=== PATIENT | male | born 1970 | race Caucasian/White ===

== ENCOUNTER 2022-06-06 10:28 | Observation (INO) ==
--- NOTE | 2022-06-06 11:21 | XRay Report ---
LUMBAR SPINE 3 VIEWS CLINICAL HISTORY: Low back pain. FINDINGS: 3 views of the lumbar spine are obtain. No prior studies are available for comparison at t he time of dictation. The skeletal structures are well mineralized. There is no radiographic evidence of fracture or malalignment. Vertebral body height and alignment are maintained. Small anterior and lateral marginal osteophytes are seen throughout. The transverse and spinous processes are intact. Th ere is mild multilevel degenerative disc space narrowing, greatest at L4-L5. Mild facet arthropathy i s seen in the lower lumbar region. The visualized bony pelvis appears intact. There is a nonobstructe d abdominal bowel gas pattern. Cholecystectomy clips are seen in the right upper quadrant. IMPRESSION: No acute bony abnormality is seen involving the lumbar spine. ACT 112: Negative or not required by law. Electronically signed by: Reno Gerardo M.D. 06/06/2022 11:19 AM
[2022-06-06] MEDS ORDERED: ONDANSETRON INJ 2 MG/ML 2 ML VIAL IV STA (11:45)
[2022-06-06] MEDS ORDERED: MoRPHine SULFATE 4 MG/ML 1 ML CARP\\VIAL IV STA (11:45)
--- NOTE | 2022-06-06 12:17 | Emergency Department Note ---
History of Present Illness General Chief complaint: Back Injury/Pain Stated complaint: BACK INJURY Time Seen by Provider: 06/06/22 11:28 History of Present Illness Maximum Pain Intensity: 8 This is a 51-year-old male that presents to the emergency department via private vehicle with complaints of "back injury/pain". The patient notes that over the past week he has been experiencing low back pain and that acutely worsened today when he bent down to tie his shoes. Initially he noted that it was centrally located in his low back but now seems to be favoring the left side. It does not radiate into his legs. Patient denies any trauma, injury, fevers, chills, chest pain, shortness of breath, abdominal pain, lower extremity weakness, bowel or bladder incontinence, numbness or tingling in genital region, speech trouble, weakness. Patient denies any history of spinal surgery. Patient does note a history of gastric bypass. Home Medications Medication Instructions Recorded Confirmed Type aspirin 81 mg tablet,delayed 81 mg PO DAILY 06/06/22 06/06/22 History release metoprolol succinate 25 mg 25 mg PO QAM 06/06/22 06/06/22 History tablet,extended release 24 hr multivitamin with minerals 1 tab PO QAM 06/06/22 06/06/22 History naproxen sodium 220 mg tablet 440 mg PO DIRECTED PRN Pain 06/06/22 06/06/22 History (Aleve) rosuvastatin 10 mg tablet 10 mg PO QAM 06/06/22 06/06/22 History turmeric 400 mg capsule 400 mg PO QAM 06/06/22 06/06/22 History Allergies Allergy/AdvReac Type Severity Reaction Status Date / Time No Known Allergies AdvReac Unknown Verified 06/06/22 16:15 Past Med/Surg History Medical History CAD (coronary artery disease) Eczema Essential hypertension History of DVT of lower extremity History of [place] (myocardial infarction) Obstructive sleep apnea Osteoarthritis of knees, bilateral Traumatic urethral stricture Surgical History History of cholecystectomy History of gastric bypass History of tonsillectomy Family History Father Heart disease Diabetes COPD (chronic obstructive pulmonary disease) Mother Asthma Cancer Social History Smoking Status: Current some day smoker Hx Alcohol Use: Yes Alcohol type: beer Alcohol Intake Frequency: 2-3 x/Week Current Living Situation: Other current occupational status: employed Feels Safe at Home: Yes Review of Systems A total of 10 systems reviewed and were otherwise negative Physical Exam Vital Signs Vital Signs - 24 hr 06/06/22 10:36 06/06/22 11:45 06/06/22 13:00 Temperature 36.4 C L Temperature Source Oral Pulse Rate 92 H Pulse Rate [Finger] 74 70 Pulse Rhythm [Finger] Regular Regular Pulse Strength [Finger] Normal Normal Respiratory Rate 18 24 20 Respiratory Effort / Characteristics Non-Labored Non-Labored Respiratory Depth Normal Normal Respiratory Pattern Regular Regular Blood Pressure 203/117 H Blood Pressure [Left Arm] 144/79 H 148/84 H Blood Pressure Mean 145 Blood Pressure Mean [Left Arm] 100 105 Blood Pressure Position [Left Arm] Pulse Oximetry 98 96 97 Oxygen Delivery Method Room Air Room Air Room Air Sepsis Recent Fever Within 48 Hours No Sepsis New/Unexplained Change in Mental Status No Sepsis Action Taken by Nursing No Action Required 06/06/22 15:46 06/06/22 18:00 Temperature Temperature Source Pulse Rate Pulse Rate [Finger] 63 86 Pulse Rhythm [Finger] Pulse Strength [Finger] Respiratory Rate 18 19 Respiratory Effort / Characteristics Respiratory Depth Respiratory Pattern Blood Pressure Blood Pressure [Left Arm] 130/83 134/80 Blood Pressure Mean Blood Pressure Mean [Left Arm] 98 98 Blood Pressure Position [Left Arm] Lying Pulse Oximetry 96 97 Oxygen Delivery Method Room Air Room Air Sepsis Recent Fever Within 48 Hours Sepsis New/Unexplained Change in Mental Status Sepsis Action Taken by Nursing VITAL SIGNS - Vital signs and nursing notes were reviewed. Stable and afebrile. GENERAL -51-year-old male appearing his stated age who is in no acute distress. Communicates well with provider and answers questions appropriately. SKIN - Without rashes. No herpetic lesions. No skin abnormalities overlying the back. HEAD - NC/AT. EYES - Sclera anicteric. EARS - No deformities of external structures noted on gross examination bilaterally. NOSE - Midline and without cyanosis. No epistaxis or purulent drainage noted. MOUTH/OROPHARYNX - Without perioral cyanosis. NECK - No nuchal rigidity. LUNGS - Chest wall symmetric without accessory muscle use, intercostals retractions, or central cyanosis. Normal vesicular breath sounds CTA B/L. No wheezes, rales, or rhonchi appreciated. CARDIAC - RRR with S1/S2. No murmur, rubs, or gallops appreciated. EXTREMITIES - No clubbing or peripheral cyanosis. +5/5 strength noted in UE/LE bilaterally. NEUROLOGIC - Cranial nerves II through XII grossly intact. MUSCULOSKELETAL: No TTP overlying the spine. PSYCH - A&O and cooperates fully with examiner. Pt is very pleasant and interacts well with examiner. Course Administered Medications Acetaminophen (Acetaminophen 500 Mg Tab) 1,000 mg PO Q8H KARO Stop: 07/06/22 16:59 Last Admin: 06/06/22 18:15 Dose: 1,000 mg Documented By: THOMAS Lidocaine (Lidocaine 5% 1 Patch) 1 patch TD QAM KARO Stop: 07/06/22 16:59 Last Admin: 06/06/22 18:18 Dose: 1 patch Documented By: THOMAS Methylprednisolone (Methylprednisolone 4 Mg Tab) 8 mg PO 1730,2100 KARO Stop: 06/06/22 21:01 Last Admin: 06/06/22 18:16 Dose: 8 mg Documented By: THOMAS Pantoprazole Sodium (Pantoprazole 40 Mg Tab) 40 mg PO QAM [facility] Stop: 07/06/22 16:59 Last Admin: 06/06/22 18:17 Dose: 40 mg Documented By: THOMAS Discontinued Medications Hydromorphone HCl (Hydromorphone Inj 1 Mg/Ml Syringe) 1 mg IV NOW STA Stop: 06/06/22 13:47 Last Admin: 06/06/22 14:10 Dose: 1 mg Documented By: ANDIE Ketorolac Tromethamine (Ketorolac Tromethamine 15 Mg/Ml Vial) 15 mg IV NOW STA Stop: 06/06/22 14:04 Last Admin: 06/06/22 14:10 Dose: 15 mg Documented By: ANDIE Morphine Sulfate (Morphine Sulfate 4 Mg/Ml 1 Ml Carp\\Vial) 4 mg IV NOW STA Stop: 06/06/22 11:46 Last Admin: 06/06/22 12:12 Dose: 4 mg Documented By: ANDIE Ondansetron HCl (Ondansetron Inj 2 Mg/Ml 2 Ml Vial) 4 mg IV NOW STA Stop: 06/06/22 11:46 Last Admin: 06/06/22 12:12 Dose: 4 mg Documented By: RDD Medical Decision Making Laboratory Data 06/06/22 12:17 06/06/22 12:17 Lab Results 06/06/22 06/06/22 Range/Units 12:17 12:17 WBC 8.30 (4.8-10.8) K/ul RBC 4.53 L (4.63-6.08) M/uL Hgb 13.8 L (14.0-18.0) g/dl Hct 40.8 (40.1-51.0) % MCV 90.1 (80.0-100.0) fL MCH 30.5 (25.0-34.0) pg MCHC 33.8 (32.0-36.0) g/dL RDW Std Deviation 44.6 (36.4-46.3) fL RDW Coeff of Conchita 13.5 (11.5-14.5) % Plt Count 266 (130-400) K/uL MPV 9.1 L (9.4-12.4) fL Immature Gran % (Auto) 0.2 % Neut % (Auto) 70.0 % Lymph % (Auto) 19.4 % Carolina % (Auto) 8.6 % Eos % (Auto) 1.2 % Baso % (Auto) 0.6 % Neut # (Auto) 5.81 (1.4-6.5) K/uL Lymph # (Auto) 1.61 (1.2-3.4) K/uL Carolina # (Auto) 0.71 (0.24-0.82) K/uL Eos # (Auto) 0.10 (0-0.50) K/uL Baso # (Auto) 0.05 (0-0.2) K/uL Immature Gran # (Auto) 0.02 (0.00-0.02) K/uL Sodium 138 (136-145) mmol/L Potassium 4.1 (3.5-5.1) mmol/L Chloride 103 (98-107) mmol/L Carbon Dioxide 29 (21-32) mmol/L Anion Gap 6 (3-11) BUN 19 (6-23) mg/dl Creatinine 0.85 (0.6-1.4) mg/dl Est Cr Clr Drug Dosing Not Reportable Est GFR ( Amer) 116.9 ml/min Est GFR (Non-Af Amer) 100.9 ml/min BUN/Creatinine Ratio 22.4 H (10-20) Glucose 96 (70-99(Fasting)) mg/dl Calcium 9.3 (8.5-10.1) mg/dl Total Bilirubin 0.7 (0.2-1.0) mg/dl AST 18 (13-39) U/L ALT 19 (7-52) U/L Alkaline Phosphatase 92 (34-104) U/L Total Protein 7.7 (6.0-8.3) gm/dl Albumin 4.2 (3.4-5.0) gm/dl Globulin 3.5 (2.5-4.0) gm/dl Albumin/Globulin Ratio 1.2 (0.9-2) Imaging Data Radiologist's Impression: Lumbar Spine X-Ray 06/06/22 10:38 LUMBAR SPINE 3 VIEWS CLINICAL HISTORY: Low back pain. FINDINGS: 3 views of the lumbar spine are obtain. No prior studies are available for comparison at the time of dictation. The skeletal structures are well mineralized. There is no radiographic evidence of fracture or malalignment. Vertebral body height and alignment are maintained. Small anterior and lateral marginal osteophytes are seen throughout. The transverse and spinous processes are intact. There is mild multilevel degenerative disc space narrowing, greatest at L4-L5. Mild facet arthropathy is seen in the lower lumbar region. The visualized bony pelvis appears intact. There is a nonobstructed abdominal bowel gas pattern. Cholecystectomy clips are seen in the right upper quadrant. IMPRESSION: No acute bony abnormality is seen involving the lumbar spine. ACT 112: Negative or not required by law. Electronically signed by: Reno Gerardo M.D. 06/06/2022 11:[address] 06/06/22 11:45 CT SCAN OF THE LUMBAR SPINE WITHOUT IV CONTRAST CLINICAL HISTORY: Low back pain. COMPARISON STUDY: Radiographs of lumbar spine dated 06/06/2022. TECHNIQUE: CT scan of the lumbar spine is performed from the lower thoracic spine to the sacrum. Images are reviewed in the axial, sagittal, and coronal planes. IV contrast was not administered for this examination. A dose lowering technique was utilized adhering to the principles of ALARA. The examination is degraded by large body habitus, and by significant streak artifact from the body wall abutting the CT gantry. CT DOSE: 830.27 mGy.cm FINDINGS: The skeletal structures are well-mineralized. There is no evidence of fracture or malalignment involving the lumbar spine. Vertebral body height and alignment are maintained. There is straightening of lumbar lordosis. Anterior and lateral marginal osteophytes are seen throughout. The transverse and spinous processes appear intact. There is no evidence of spondylolysis. No lytic or blastic lesion is seen. Mild facet arthropathy is noted in the lower lumbar region. There is mild to moderate multilevel degenerative disc space narrowing, greatest at L3-L4 and L4-L5. The central canal is not well evaluated due to streak artifact. The visualized sacrum and bony pelvis appear intact. The paraspinous soft tissues are normal in appearance. Cholecystectomy clips are noted. There is no retroperitoneal lymphadenopathy. IMPRESSION: No acute bony abnormality is seen involving the lumbar spine ACT 112: Negative or not required by law. Dictated: 06/06/2022 12:58 PM Transcribed: 06/06/2022 1:21 PM Mirian [id number] [facility] Electronically signed by: Reno Gerardo M.D. 06/06/2022 2:16 PM [facility] Narrative Patient was seen and evaluated as above in room D03. Review was performed of triage nursing notes and vital signs. After obtaining a thorough history and physical examination the above work up was performed. Patient presents to us today with low back pain. He clinically appears well and nontoxic. No evidence of cauda equina syndrome by history or exam. Options of care were discussed with the patient. IV access was established. Labs were drawn. No leukocytosis. Minor anemia noted with hemoglobin of 13.8. No evidence of kidney or liver failure. Patient's L-spine x-ray was performed p rior to me seeing the patient as ordered from triage and was negative for acute process. A CT scan was obtained of the L-spine to further evaluate his location of discomfort. Results as above. There are mild to moderate multilevel degenerative disc space narrowing noted at L3-L4 and L4-L5. This likely is contributory to his presentation at this time. No indication for emergent MRI. Options of care were discussed in regard to analgesia. I initially medicated the patient here with IV morphine, IV Zofran noting he already tried [id number] type medications at home without relief. This was unhelpful at helping his discomfort. IV Dilaudid then ordered. He noted some improvement. Ambulatory trial initiated and he was unable to stand up straight and still had difficulty walking noting his discomfort. Options in regard to inpatient versus outpatient management discussed. Through shared decision-making with the patient we will proceed with further evaluation and management in the inpatient setting. Patient happy with plan of care. Case discussed with the hospitalist service. Please refer to further documentation regarding his stay. GCS: 15 In the evaluation and treatment of this patient the following differential diagnosis entertained: Fracture, dislocation, subluxation, cauda equina syndrome, AAA, diverticulitis, appendicitis, torsion, osteomyelitis, piriformis syndrome, strain, sprain, among others. Impression & Plan Intractable low back pain Discharge Plan Visit Data Chief Complaint: Back Injury/Pain Stated Complaint: BACK INJURY ED Provider: Martín Melendrez ED Midlevel Provider: Thomas Child Discharge Problem: Intractable low back pain Patient Disposition: Admitted As Inpatient Condition: Good Discharge Instructions Interventions: ED Discharge Assessment Last Done: 06/06/22 18:25 Forms Stand Alone Forms: [facility], Virtual Emergency Department, Important Visit Information Prescriptions Prescriptions: No Action naproxen sodium [Aleve] 220 mg Tablet 440 mg PO DIRECTED PRN (Reason: Pain) metoprolol succinate 25 mg tablet extended release 24 hr 25 mg PO QAM Men's One Daily Tablet 1 tab PO QAM rosuvastatin 10 mg tablet 10 mg PO QAM turmeric 400 mg Capsule 400 mg PO QAM aspirin 81 mg Tablet,Delayed Release (Dr/Ec) 81 mg PO DAILY Referrals Referrals: Yuri Garvin DO [Primary Care Provider] -
[2022-06-06 12:36] LABS: Basophils # (auto) 0.05 K/uL (0-0.2); Basophils % (auto) 0.6 %; Eosinophils % (auto) 1.2 %; Hematocrit (blood only) 40.8 % (40.1-51.0); Hemoglobin 13.8 g/dl (14.0-18.0); Immature Granulocytes # (auto) 0.02 K/uL (0.00-0.02); Immature Granulocytes % (auto) 0.2 %; Lymphocytes # (auto) 1.61 K/uL (1.2-3.4); Lymphocytes % (auto) 19.4 %; Mean Corpuscular Hemoglobin 30.5 pg (25.0-34.0); Mean Corpuscular Hgb Conc 33.8 g/dL (32.0-36.0); Mean Corpuscular Volume 90.1 fL (80.0-100.0); Mean Platelet Volume 9.1 fL (9.4-12.4); Monocytes # (auto) 0.71 K/uL (0.24-0.82); Monocytes % (auto) 8.6 %; Neutrophils # (auto) 5.81 K/uL (1.4-6.5); Platelet Count 266 K/uL (130-400); RDW Coefficient of Variation 13.5 % (11.5-14.5); RDW Standard Deviation 44.6 fL (36.4-46.3); Red Blood Count 4.53 M/uL (4.63-6.08)
[2022-06-06 12:58] LABS: Alanine Aminotransferase 19 U/L (7-52); Albumin Globulin Ratio 1.2 (0.9-2); Albumin Level 4.2 gm/dl (3.4-5.0); Alkaline Phosphatase 92 U/L (34-104); Anion Gap 6 (3-11); Aspartate Aminotransferase 18 U/L (13-39); BUN Creatinine Ratio 22.4 (10-20); Bilirubin,Total 0.7 mg/dl (0.2-1.0); Blood Urea Nitrogen 19 mg/dl (6-23); Calcium 9.3 mg/dl (8.5-10.1); Carbon Dioxide 29 mmol/L (21-32); Chloride 103 mmol/L (98-107); Est GFR (African American) 116.9 ml/min; Est GFR (Non-African American) 100.9 ml/min; Globulin 3.5 gm/dl (2.5-4.0); Glucose 96 mg/dl (70-99(Fasting)); Potassium 4.1 mmol/L (3.5-5.1); Sodium 138 mmol/L (136-145); Total Protein 7.7 gm/dl (6.0-8.3)
[2022-06-06] MEDS ORDERED: HYDROmorphone INJ 1 MG/ML SYRINGE IV STA (13:46)
[2022-06-06] MEDS ORDERED: KETOROLAC TROMETHAMINE 15 MG/ML VIAL IV STA (14:03)
--- NOTE | 2022-06-06 14:18 | CT Scan Report ---
CT SCAN OF THE LUMBAR SPINE WITHOUT IV CONTRAST CLINICAL HISTORY: Low back pain. COMPARISON STUDY: Radiographs of lumbar spine dated 06/06/2022. TECHNIQUE: CT scan of the lumbar spine is performed from the lower thoracic spine to the sacrum. Imag es are reviewed in the axial, sagittal, and coronal planes. IV contrast was not administered for this examination. A dose lowering technique was utilized adhering to the principles of ALARA. The examina tion is degraded by large body habitus, and by significant streak artifact from the body wall abuttin g the CT gantry. CT DOSE: 830.27 mGy.cm FINDINGS: The skeletal structures are well-mineralized. There is no evidence of fracture or malalignm ent involving the lumbar spine. Vertebral body height and alignment are maintained. There is straight ening of lumbar lordosis. Anterior and lateral marginal osteophytes are seen throughout. The transver se and spinous processes appear intact. There is no evidence of spondylolysis. No lytic or blastic le philippe is seen. Mild facet arthropathy is noted in the lower lumbar region. There is mild to moderate m ultilevel degenerative disc space narrowing, greatest at L3-L4 and L4-L5. The central canal is not we ll evaluated due to streak artifact. The visualized sacrum and bony pelvis appear intact. The paraspi nous soft tissues are normal in appearance. Cholecystectomy clips are noted. There is no retroperiton eal lymphadenopathy. IMPRESSION: No acute bony abnormality is seen involving the lumbar spine ACT 112: Negative or not required by law. Dictated: 06/06/2022 12:58 PM Transcribed: 06/06/2022 1:21 PM Mirian [id number] [facility] Electronically signed by: Reno Gerardo M.D. 06/06/2022 2:16 PM
--- NOTE | 2022-06-06 16:50 | History & Physical Report ---
Date of Service June 06, 2022 Assessment & Plan (1) Intractable low back pain: Plan: 51 y/o male presents with one week of acute lower back pain that has gradually worsened and is now limiting his ability to function safely at home. Still with difficulty ambulating in the ED due to pain so referred for admission for pain control - Admit to med surg - Consult pain management to determine if pt may be a candidate for injections - Add scheduled acetaminophen, Baclofen and lidocaine patch - Will trial Medrol dosepack - Add prn IV dilaudid - Fall precautions - Avoid NSAIDs if possible due to hx gastric bypass (2) Morbid obesity: (3) CAD (coronary artery disease): (4) Essential hypertension: (5) History of gastric bypass: Plan Continue other home medications as appropriate Pt seen and reviewed with attending physician, Dr. Hensley. Plan of care discussed and as outlined above Code Status: Full code DVT Prophylaxis: Crisatl White PA-C History of Present Illness Chief Complaint: Worsening back pain x 1 week Primary Care Provider: Yuri Garvin DO This is a 51 y/o male with a PMH of RI, morbid obesity, prior gastric bypass, sleep apnea, and urethral stricture who presented to the ED with worsening lower back pain x 1 week. Pt reports a history of right sciatica but this had seemed to improve after recent injections in knees for arthritis. One week ago he woke up with mid-lumbar pain that seemed to radiate to both sides. This started to improve initially after a few days but other the weekend it has moved to his left lumbar area and is worsening. He describes the pain as sharp and "deep" but it does not radiate to LE. Associated bilateral SI joint pain. He has been taking Aleve 2 tab BID with occasional Tylenol but this only takes the edge off. Pain has not gone away completely. This morning, he bent over to tie his shoe and had acute worsening of the pain. He attempted to go to work (at [employer]) but was unable to stand up straight and could not complete his work so he came to the ED for evaluation. In the ED, he received multiple doses of pain medication including morphine, dilaudid, and toradol without significant relief of pain. ED provider attempted to ambulate pt in the room but pt was unable to tolerate due to pain and was thought to be a significant fall risk if sent home. Pt reports living with a roommate. He has three steps to get into the house but otherwise living space is on one floor. He denies prior spinal surgery. Current pain is different than prior back pain associated with right sciatica. Allergies Allergy/AdvReac Type Severity Reaction Status Date / Time No Known Allergies AdvReac Unknown Verified 06/06/22 16:15 Home Medications Medication Instructions Recorded Confirmed Type aspirin 81 mg tablet,delayed 81 mg PO DAILY 06/06/22 06/06/22 History release metoprolol succinate 25 mg 25 mg PO QAM 06/06/22 06/06/22 History tablet,extended release 24 hr multivitamin with minerals 1 tab PO QAM 06/06/22 06/06/22 History naproxen sodium 220 mg tablet 440 mg PO DIRECTED PRN Pain 06/06/22 06/06/22 History (Aleve) rosuvastatin 10 mg tablet 10 mg PO QAM 06/06/22 06/06/22 History turmeric 400 mg capsule 400 mg PO QAM 06/06/22 06/06/22 History Past Med/Surg History Medical History CAD (coronary artery disease) Eczema Essential hypertension History of DVT of lower extremity History of RI (myocardial infarction) Obstructive sleep apnea Osteoarthritis of knees, bilateral Traumatic urethral stricture Surgical History History of cholecystectomy History of gastric bypass History of tonsillectomy Family History Father Heart disease Diabetes COPD (chronic obstructive pulmonary disease) Mother Asthma Cancer Social History Smoking Status: Current some day smoker Second Hand Exposure: Yes; Hx Alcohol Use: Yes Alcohol type: beer and hard liquor Alcohol Intake Frequency: 2-3 x/Week Hx Substance Use: No Preferred Language: [place] Communication Ability: Effective Buffer Inflated Pad Required: No Beliefs That Will Affect Care: None Current Living Situation: Other Current Living Situation Comment: roomate, 3 stairs to enter current occupational status: employed Feels Safe at Home: Yes Safety Concerns: Feels Safe At This Time Assistive Devices: Denture - Upper and Glasses Review of Systems Review of Systems: All systems reviewed & are unremarkable except as noted in HPI & below Constitutional: no fever, no chills and no sweats Eyes: no diplopia and no worsening vision Ear, Nose, Mouth, Throat: no nasal congestion, no sore throat and no dysphagia Respiratory: no cough and no dyspnea Cardiovascular: no chest pain and no palpitations Gastrointestinal: no abdominal pain, no nausea and no vomiting Genitourinary: no dysuria or no hematuria Musculoskeletal: + back pain; no radicular pain Integumentary: no yellowing of the skin Neurologic: + unsteadiness (at times due to pain); no falls, no tingling and no numbness Psychiatric: no depression and no anxiety Physical Exam Constitutional: + morbidly obese; no acute distress Eyes: + anicteric sclerae Neck: trachea midline Respiratory: no respiratory distress and no labored breathing Auscultation: lungs clear to auscultation bilaterally; no rales, no rhonchi and no wheezes Cardiovascular: Rate/Rhythm: regular rate and regular rhythm Vessels: posterior tibial pulses present and radial pulses present Extremities: no edema Gastrointestinal (Abdomen): Inspection/Auscultation: normal bowel sounds; abdomen not distended Percussion/Palpation: abdomen soft Musculoskeletal: Head/Neck/Chest: normocephalic, head atraumatic and neck supple no spinous process tenderness LE strength 5/5 and equal - no increased pain with dorsiflexion, plantarflexion or hip flexion Skin: no jaundice Neurologic: moves all extremities; no focal motor deficits Psychiatric: A+Ox3, euthymic affect Results & Data Results & Data ([facility]) Vital Signs (Past 12 Hours) Vital Signs Temp Pulse Pulse Resp BP BP Pulse Ox 06/06/22 15:46 63 18 130/83 96 06/06/22 13:00 70 20 148/84 H 97 06/06/22 11:45 74 24 144/79 H 96 06/06/22 10:36 36.4 C L 92 H 18 203/117 H 98 O2 Del Method 06/06/22 15:46 Room Air 06/06/22 13:00 Room Air 06/06/22 11:45 Room Air 06/06/22 10:36 Room Air Laboratory Results Laboratory Results - last 24 hr 06/06/22 06/06/22 06/06/22 12:17 12:17 16:02 WBC 8.30 RBC 4.53 L Hgb 13.8 L Hct 40.8 MCV 90.1 MCH 30.5 MCHC 33.8 RDW Std Deviation 44.6 RDW Coeff of Conchita 13.5 Plt Count 266 MPV 9.1 L Immature Gran % (Auto) 0.2 Neut % (Auto) 70.0 Lymph % (Auto) 19.4 Cobb % (Auto) 8.6 Eos % (Auto) 1.2 Baso % (Auto) 0.6 Neut # (Auto) 5.81 Lymph # (Auto) 1.61 Cobb # (Auto) 0.71 Eos # (Auto) 0.10 Baso # (Auto) 0.05 Immature Gran # (Auto) 0.02 Sodium 138 Potassium 4.1 Chloride 103 Carbon Dioxide 29 Anion Gap 6 BUN 19 Creatinine 0.85 Est Cr Clr Drug Dosing Not Reportable Est GFR ( Amer) 116.9 Est GFR (Non-Af Amer) 100.9 BUN/Creatinine Ratio 22.4 H Glucose 96 Calcium 9.3 Total Bilirubin 0.7 AST 18 ALT 19 Alkaline Phosphatase 92 Total Protein 7.7 Albumin 4.2 Globulin 3.5 Albumin/Globulin Ratio 1.2 SARS-CoV-2, RNA, NAAT Pending Diagnostic Findings Lumbar Spine X-ray 06/06/22 - IMPRESSION: No acute bony abnormality is seen involving the lumbar spine. Lumbar Spine CT 06/06/22 - IMPRESSION: No acute bony abnormality is seen involving the lumbar spine Medications Administered Discontinued Medications Hydromorphone HCl (Hydromorphone Inj 1 Mg/Ml Syringe) 1 mg IV NOW STA Stop: 06/06/22 13:47 Last Admin: 06/06/22 14:10 Dose: 1 mg Documented By: ANDIE Ketorolac Tromethamine (Ketorolac Tromethamine 15 Mg/Ml Vial) 15 mg IV NOW STA Stop: 06/06/22 14:04 Last Admin: 06/06/22 14:10 Dose: 15 mg Documented By: ANDIE Morphine Sulfate (Morphine Sulfate 4 Mg/Ml 1 Ml Carp\\Vial) 4 mg IV NOW STA Stop: 06/06/22 11:46 Last Admin: 06/06/22 12:12 Dose: 4 mg Documented By: ANDIE Ondansetron HCl (Ondansetron Inj 2 Mg/Ml 2 Ml Vial) 4 mg IV NOW STA Stop: 06/06/22 11:46 Last Admin: 06/06/22 12:12 Dose: 4 mg Documented By: RDD Code Status & VTE Plan VTE Prophylaxis Plan VTE Prophylaxis will be ordered: Yes Supervising Physician Co-Signing Physician Notes Pt seen and examined by me, care coordinated w/Tashi White PA-C, pls refer to her note above for further detail. Pt is a 51 y/o M w/hx of RI, morbid obesity, prior gastric bypass, sleep apnea, and urethral stricture who presents with worsening lower back pain x 1 week. Denies any incontinence. In the ED, he received multiple doses of pain medication including morphine, dilaudid, and toradol with some relief of pain. Currently pt is sitting up in bed in [facility]. He is awake, alert, oriented and answering appropriately. Lungs are CTAB, no wheezing. Heart sounds regular. He is breathing comfortably on RA. Moves extremities. Abdomen is soft, obese, + bowel sounds, nontender to palpation. Will give tylenol around the clock, lidocain patch, baclofen, medrol pack, dilaudid prn. Pain management consult in the morning. Continue to closely monitor. MD Ayden
[2022-06-06] MEDS ORDERED: methylPREDNISolone 4 MG TAB, 6 DAY TAPER PO SCH (17:00)
[2022-06-06] MEDS: ACETAMINOPHEN 500 MG TAB PO SCH (18:15)
[2022-06-06] MEDS: methylPREDNISolone 4 MG TAB PO SCH ×2 (18:16→22:41)
[2022-06-06] MEDS: PANTOprazole 40 MG TAB PO SCH (18:17)
[2022-06-06] MEDS: LIDOCAINE 5% 1 PATCH TD SCH (18:18)
[2022-06-06] MEDS ORDERED: methylPREDNISolone 4 MG TAB PO SCH (19:00)
[2022-06-06] MEDS: ENOXAPARIN INJ 40 MG/0.4 ML SYR SQ SCH (22:39)
[2022-06-06] MEDS: METOPROLOL SUCC 25MG EXT REL TAB PO SCH (22:42)
[2022-06-06] MEDS: BACLOFEN 10 MG TAB PO SCH (22:42)
[2022-06-07] MEDS: ACETAMINOPHEN 500 MG TAB PO SCH ×4 (01:30→23:48)
[2022-06-07] MEDS: methylPREDNISolone 4 MG TAB PO SCH ×3 (05:53→17:29)
[2022-06-07] MEDS: HYDROmorphone INJ 0.5 MG/0.5 ML SYR IV PRN ×3 (06:00→22:32)
[2022-06-07 06:14] LABS: Basophils # (auto) 0.02 K/uL (0-0.2); Basophils % (auto) 0.3 %; Hematocrit (blood only) 39.4 % (40.1-51.0); Hemoglobin 13.1 g/dl (14.0-18.0); Immature Granulocytes # (auto) 0.03 K/uL (0.00-0.02); Immature Granulocytes % (auto) 0.4 %; Lymphocytes # (auto) 0.77 K/uL (1.2-3.4); Lymphocytes % (auto) 10.2 %; Mean Corpuscular Hemoglobin 30.4 pg (25.0-34.0); Mean Corpuscular Hgb Conc 33.2 g/dL (32.0-36.0); Mean Corpuscular Volume 91.4 fL (80.0-100.0); Mean Platelet Volume 8.9 fL (9.4-12.4); Monocytes # (auto) 0.18 K/uL (0.24-0.82); Monocytes % (auto) 2.4 %; Neutrophils # (auto) 6.57 K/uL (1.4-6.5); Neutrophils % (auto) 86.7 %; Platelet Count 259 K/uL (130-400); RDW Coefficient of Variation 13.3 % (11.5-14.5); RDW Standard Deviation 45.4 fL (36.4-46.3); Red Blood Count 4.31 M/uL (4.63-6.08); White Blood Count 7.57 K/ul (4.8-10.8)
[2022-06-07 06:36] LABS: BUN Creatinine Ratio 25.3 (10-20); Calcium 8.9 mg/dl (8.5-10.1); Creatinine Clr Calc Pharmacy 211.8 ml/min; Est GFR (African American) 120.5 ml/min; Potassium 4.4 mmol/L (3.5-5.1)
[2022-06-07] MEDS: PANTOprazole 40 MG TAB PO SCH (08:04)
[2022-06-07] MEDS: ASPIRIN 81 MG ECTAB PO SCH (08:04)
[2022-06-07] MEDS: METOPROLOL SUCC 25MG EXT REL TAB PO SCH (08:04)
[2022-06-07] MEDS: CEROVITE ADV FORMULA TAB PO SCH (08:04)
[2022-06-07] MEDS: BACLOFEN 10 MG TAB PO SCH ×2 (08:04→22:22)
[2022-06-07] MEDS: LIDOCAINE 5% 1 PATCH TD SCH (08:04)
[2022-06-07] MEDS: ROSUVASTATIN CALCIUM 10 MG TAB PO SCH (08:05)
[2022-06-07] MEDS: ENOXAPARIN INJ 40 MG/0.4 ML SYR SQ SCH ×2 (08:05→22:22)
--- NOTE | 2022-06-07 08:24 | Pain Management Consultation ---
Date of Consultation June 07, 2022 Assessment & Plan (1) Morbid obesity: (2) Intractable low back pain: (3) Sacroiliitis: Plan 1. Continue Medrol Rafa, Baclofen 10mg BID, Lidocaine patch, and PRN IV Dilaudid. 2. I have added oxycodone for the patient to take prior to IV Dilaudid. 3. Recommend PT/OT 4. Could consider left SI joint injection. Would like to see if Medrol Rafa is effective towards diminishing pain prior to proceeding with injection. 5. Patient will make appointment again with Dr. Yg Serra [facility] as he did cancel it last week. History of Present Illness Reason for Consultation: Intractable back pain Attending Physician: Angel Hensley MD History of Present Illness Mr. Chun is a 51-year-old male that has been admitted to the [facility] for lumbar pain. He states that over the last week he has been experiencing low back pain which did acutely worsen yesterday when he was bending forward to put on his shoes he felt a sudden sharp pain in the left low back. He denies any radicular symptoms. Patient has been taking Tylenol and applying [id number] patches without any relief. Pain is rated 2/10 at its best and 8/10 at its worst. He is having difficulty performing his daily activities due to the pain. Currently he is receiving Tylenol 1 g every 8 hours, baclofen 10 mg twice daily, lidocaine patch, Medrol pack, and IV Dilaudid if needed for breakthrough pain. He is reporting mild pain relief this morning. Patient was to have an initial consultation with Dr. Franky Serra Pain Management next week but cancelled it as his pain improved. He denies any bowel/bladder incontinence, saddle anesthesia, foot drop, leg weakness, falls. Case discussed with Dr. Kimmy Beltran Allergies Allergy/AdvReac Type Severity Reaction Status Date / Time No Known Allergies AdvReac Unknown Verified 06/06/22 16:15 Home Medications Medication Instructions Recorded Confirmed Type aspirin 81 mg tablet,delayed 81 mg PO DAILY 06/06/22 06/06/22 History release metoprolol succinate 25 mg 25 mg PO QAM 06/06/22 06/06/22 History tablet,extended release 24 hr multivitamin with minerals 1 tab PO QAM 06/06/22 06/06/22 History naproxen sodium 220 mg tablet 440 mg PO DIRECTED PRN Pain 06/06/22 06/06/22 History (Aleve) rosuvastatin 10 mg tablet 10 mg PO QAM 06/06/22 06/06/22 History turmeric 400 mg capsule 400 mg PO QAM 06/06/22 06/06/22 History Patient History Medical History CAD (coronary artery disease) Eczema Essential hypertension History of DVT of lower extremity History of [place] (myocardial infarction) Obstructive sleep apnea Osteoarthritis of knees, bilateral Traumatic urethral stricture Surgical History History of cholecystectomy History of gastric bypass History of tonsillectomy Family History Father Heart disease Diabetes COPD (chronic obstructive pulmonary disease) Mother Asthma Cancer Social History Smoking Status: Current some day smoker Second Hand Exposure: Yes; Hx Alcohol Use: Yes Alcohol type: beer and hard liquor Alcohol Intake Frequency: 2-3 x/Week Hx Substance Use: No Preferred Language: Mozambican Communication Ability: Effective Head Porter Required: No Beliefs That Will Affect Care: None Current Living Situation: Other Current Living Situation Comment: roomate, 3 stairs to enter current occupational status: employed Feels Safe at Home: Yes Safety Concerns: Feels Safe At This Time Assistive Devices: Denture - Upper and Glasses Physical Exam Physical Exam: GENERAL: This is a morbidly obese 51 year old male that does not appear in any acute distress. Able to go from supine to sitting position with use of above head lift. HEAD/FACE: Normocephalic and atraumatic. EYES: No drainage or conjunctival injection. ENT: Nose without bleeding or discharge. Oral mucosa moist. NECK: Full ROM without apparent pain. No swelling or masses noted. RESPIRATORY: Patient with unlabored breathing. No signs of respiratory distress. CHEST/AXILLA: Chest movement symmetrical. No deformities noted. BACK: Moves without difficulty. Limited ROM due to body habitus. There is no midline or facet joint tenderness. There is focal tenderness along the left SI joint with mild overlying myofascial spasm. SKIN: [place], warm and dry. No rash noted. MS/EXTREMITY: 5/5 strength of the lower extremities. Negative straight leg raise. NEURO: Alert and appears oriented. Speech is fluent. Cranial Nerves are grossly intact. PSYCH: Alert, pleasant, affect is calm Results (Pain [facility]) Diagnostic Review CT Findings: CT SCAN OF THE LUMBAR SPINE WITHOUT IV CONTRAST CLINICAL HISTORY: Low back pain. COMPARISON STUDY: Radiographs of lumbar spine dated 06/06/2022. TECHNIQUE: CT scan of the lumbar spine is performed from the lower thoracic spine to the sacrum. Images are reviewed in the axial, sagittal, and coronal planes. IV contrast was not administered for this examination. A dose lowering technique was utilized adhering to the principles of ALARA. The examination is degraded by large body habitus, and by significant streak artifact from the body wall abutting the CT gantry. CT DOSE: 830.27 mGy.cm FINDINGS: The skeletal structures are well-mineralized. There is no evidence of fracture or malalignment involving the lumbar spine. Vertebral body height and alignment are maintained. There is straightening of lumbar lordosis. Anterior and lateral marginal osteophytes are seen throughout. The transverse and spinous processes appear intact. There is no evidence of spondylolysis. No lytic or blastic lesion is seen. Mild facet arthropathy is noted in the lower lumbar region. There is mild to moderate multilevel degenerative disc space narrowing, greatest at L3-L4 and L4-L5. The central canal is not well evaluated due to streak artifact. The visualized sacrum and bony pelvis appear intact. The deion pinous soft tissues are normal in appearance. Cholecystectomy clips are noted. There is no retroperitoneal lymphadenopathy. IMPRESSION: No acute bony abnormality is seen involving the lumbar spine ACT 112: Negative or not required by law. Dictated: 06/06/2022 12:58 PM Transcribed: 06/06/2022 1:21 PM Mirian [id number] [facility] Electronically signed by: Reno Gerardo M.D. 06/06/2022 2:16 PM Radiology Findings: LUMBAR SPINE 3 VIEWS CLINICAL HISTORY: Low back pain. FINDINGS: 3 views of the lumbar spine are obtain. No prior studies are available for comparison at the time of dictation. The skeletal structures are well mineralized. There is no radiographic evidence of fracture or malalignment. Vertebral body height and alignment are maintained. Small anterior and lateral marginal osteophytes are seen throughout. The transverse and spinous processes are intact. There is mild multilevel degenerative disc space narrowing, greatest at L4-L5. Mild facet arthropathy is seen in the lower lumbar region. The visualized bony pelvis appears intact. There is a nonobstructed abdominal bowel gas pattern. Cholecystectomy clips are seen in the right upper quadrant. IMPRESSION: No acute bony abnormality is seen involving the lumbar spine. ACT 112: Negative or not required by law. Electronically signed by: Reno Gerardo M.D. 06/06/2022 11:19 AM
--- NOTE | 2022-06-07 08:46 | Hospitalist Progress Note ---
Date of Service June 07, 2022 Assessment & Plan (1) Intractable low back pain: Plan: 51 y/o male presents with one week of acute lower back pain that has gradually worsened and is now limiting his ability to function safely at home. Still with difficulty ambulating in the ED due to pain so referred for admission for pain control - Consulted pain management to determine if pt may be a candidate for injections -medications adjusted - cont. scheduled acetaminophen, Baclofen and lidocaine patch - started Medrol dosepack, will cont. - P.o. Oxy as needed, IV dilaudid prn - Fall precautions - Avoid NSAIDs if possible due to hx gastric bypass PT/OT eval pending (2) Morbid obesity: (3) CAD (coronary artery disease): (4) Essential hypertension: (5) History of gastric bypass: Plan Continue other home medications as appropriate Code Status: Full code DVT Prophylaxis: Lovenox Admission and Anticipated Discharge Date Admission Date: June 06, 2022 Subjective Pt seen in follow up of back pain Seen by pain management this AM PT/OT eval pending Currently laying in bed, in no acute distress Reportedly last evening he was feeling better, and was able to get out from bed However today again he is complaining of pain, and not be able to move Otherwise denies any fevers chills chest pain shortness of breath, abdominal pain, nausea or vomiting Review of Systems Review of Systems: All systems reviewed & are unremarkable except as noted in Subjective Physical Exam Physical Exam: Constitutional:L + morbidly obese; no acute distress Eyes: + anicteric scler ae Neck: trachea midline Respiratory: no respiratory dis tress and no labor ed breathing Ausc ultation: lungs cl ear to auscultatio n bilaterally; no rales, no rhonchi and no wheezes Cardiovascular:L Rate/Rhythm: regul ar rate and regula r rhythm Extremi ties: no edema Gastrointestinal ( Abdomen): Inspection/Auscult ation: normal jennifer l sounds; abdomen not distended Per cussion/Palpation: abdomen soft Musculoskeletal: Head/Neck/Chest: n ormocephalic, head atraumatic and ne ck supple no spin ous process tender ness LE strength 5 /5 and equal - no increased pain wit h dorsiflexion, pl antarflexion or hi p flexion Skin: no jaundice Neurologic: moves all extremit ies; no focal yoko r deficits Psychiatric: A+Ox3, euthymic af fect Results & Data Results & Data ([facility]) Vital Signs (Past 12 Hours) Vital Signs Temp Pulse Resp BP Pulse Ox O2 Del Method 06/07/22 08:14 Room Air 06/07/22 07:11 36.6 C 62 18 126/78 96 Room Air Laboratory Results 06/07/22 06/07/22 06/06/22 Range/Units 05:57 05:57 16:02 WBC 7.57 (4.8-10.8) K/ul RBC 4.31 L (4.63-6.08) M/uL Hgb 13.1 L (14.0-18.0) g/dl Hct 39.4 L (40.1-51.0) % MCV 91.4 (80.0-100.0) fL MCH 30.4 (25.0-34.0) pg MCHC 33.2 (32.0-36.0) g/dL RDW Std Deviation 45.4 (36.4-46.3) fL RDW Coeff of Conchita 13.3 (11.5-14.5) % Plt Count 259 (130-400) K/uL MPV 8.9 L (9.4-12.4) fL Immature Gran % (Auto) 0.4 % Neut % (Auto) 86.7 % Lymph % (Auto) 10.2 % Nolan % (Auto) 2.4 % Eos % (Auto) 0.0 % Baso % (Auto) 0.3 % Neut # (Auto) 6.57 H (1.4-6.5) K/uL Lymph # (Auto) 0.77 L (1.2-3.4) K/uL Nolan # (Auto) 0.18 L (0.24-0.82) K/uL Eos # (Auto) 0.00 (0-0.50) K/uL Baso # (Auto) 0.02 (0-0.2) K/uL Immature Gran # (Auto) 0.03 H (0.00-0.02) K/uL Sodium 138 (136-145) mmol/L Potassium 4.4 (3.5-5.1) mmol/L Chloride 104 (98-107) mmol/L Carbon Dioxide 30 (21-32) mmol/L Anion Gap 4 (3-11) BUN 20 (6-23) mg/dl Creatinine 0.79 (0.6-1.4) mg/dl Est Cr Clr Drug Dosing 211.8 Est GFR ( Amer) 120.5 ml/min Est GFR (Non-Af Amer) 104.0 ml/min BUN/Creatinine Ratio 25.3 H (10-20) Glucose 133 H (70-99(Fasting)) mg/dl Calcium 8.9 (8.5-10.1) mg/dl Total Bilirubin (0.2-1.0) mg/dl AST (13-39) U/L ALT (7-52) U/L Alkaline Phosphatase (34-104) U/L Total Protein (6.0-8.3) gm/dl Albumin (3.4-5.0) gm/dl Globulin (2.5-4.0) gm/dl Albumin/Globulin Ratio (0.9-2) SARS-CoV-2, RNA, NAAT NEGATIVE (NEGATIVE) 06/06/22 06/06/22 Range/Units 12:17 12:17 WBC 8.30 (4.8-10.8) K/ul RBC 4.53 L (4.63-6.08) M/uL Hgb 13.8 L (14.0-18.0) g/dl Hct 40.8 (40.1-51.0) % MCV 90.1 (80.0-100.0) fL MCH 30.5 (25.0-34.0) pg MCHC 33.8 (32.0-36.0) g/dL RDW Std Deviation 44.6 (36.4-46.3) fL RDW Coeff of Conchita 13.5 (11.5-14.5) % Plt Count 266 (130-400) K/uL MPV 9.1 L (9.4-12.4) fL Immature Gran % (Auto) 0.2 % Neut % (Auto) 70.0 % Lymph % (Auto) 19.4 % Nolan % (Auto) 8.6 % Eos % (Auto) 1.2 % Baso % (Auto) 0.6 % Neut # (Auto) 5.81 (1.4-6.5) K/uL Lymph # (Auto) 1.61 (1.2-3.4) K/uL Nolan # (Auto) 0.71 (0.24-0.82) K/uL Eos # (Auto) 0.10 (0-0.50) K/uL Baso # (Auto) 0.05 (0-0.2) K/uL Immature Gran # (Auto) 0.02 (0.00-0.02) K/uL Sodium 138 (136-145) mmol/L Potassium 4.1 (3.5-5.1) mmol/L Chloride 103 (98-107) mmol/L Carbon Dioxide 29 (21-32) mmol/L Anion Gap 6 (3-11) BUN 19 (6-23) mg/dl Creatinine 0.85 (0.6-1.4) mg/dl Est Cr Clr Drug Dosing Not Reportable Est GFR ( Amer) 116.9 ml/min Est GFR (Non-Af Amer) 100.9 ml/min BUN/Creatinine Ratio 22.4 H (10-20) Glucose 96 (70-99(Fasting)) mg/dl Calcium 9.3 (8.5-10.1) mg/dl Total Bilirubin 0.7 (0.2-1.0) mg/dl AST 18 (13-39) U/L ALT 19 (7-52) U/L Alkaline Phosphatase 92 (34-104) U/L Total Protein 7.7 (6.0-8.3) gm/dl Albumin 4.2 (3.4-5.0) gm/dl Globulin 3.5 (2.5-4.0) gm/dl Albumin/Globulin Ratio 1.2 (0.9-2) SARS-CoV-2, RNA, NAAT (NEGATIVE) Medications Administered Current Inpatient Medications Acetaminophen (Acetaminophen 500 Mg Tab) 1,000 mg PO Q8H KARO Stop: 07/06/22 16:59 Last Admin: 06/07/22 08:04 Dose: 1,000 mg Aspirin (Aspirin 81 Mg Ectab) 81 mg PO DAILY KARO Stop: 07/07/22 08:59 Last Admin: 06/07/22 08:04 Dose: 81 mg Baclofen (Baclofen 10 Mg Tab) 10 mg PO BID [facility]O Stop: 07/06/22 20:59 Last Admin: 06/07/22 08:04 Dose: 10 mg Enoxaparin Sodium (Enoxaparin Inj 40 Mg/0.4 Ml Syr) 40 mg SQ Q12H [facility] Stop: 07/06/22 20:59 Last Admin: 06/07/22 08:05 Dose: 40 mg Hydromorphone HCl (Hydromorphone Inj 0.5 Mg/0.5 Ml Syr) 0.5 mg IV Q4H PRN PRN Reason: Pain 4-10 Stop: 06/20/22 16:49 Last Admin: 06/07/22 06:00 Dose: 0.5 mg Lidocaine (Lidocaine 5% 1 Patch) 1 patch TD [facility] Stop: 07/06/22 16:59 Last Admin: 06/07/22 08:04 Dose: 1 patch Methylprednisolone (Methylprednisolone 4 Mg Tab) 4 mg PO 0700,1300,1800 [facility] Stop: 06/07/22 18:01 Last Admin: 06/07/22 05:53 Dose: 4 mg Methylprednisolone (Methylprednisolone 4 Mg Tab) 8 mg PO HS [facility] Stop: 06/07/22 21:01 Methylprednisolone (Methylprednisolone 4 Mg Tab) 4 mg PO 0700,1300,1800,2100 [facility] Stop: 06/08/22 21:01 Methylprednisolone (Methylprednisolone 4 Mg Tab) 4 mg PO 0700,1300,2100 [facility] Stop: 06/09/22 21:01 Methylprednisolone (Methylprednisolone 4 Mg Tab) 4 mg PO 0700,2100 [facility] Stop: 06/10/22 21:01 Methylprednisolone (Methylprednisolone 4 Mg Tab) 4 mg PO 0700 [facility] Stop: 06/11/22 07:01 Metoprolol Succinate (Metoprolol Succ 25mg Ext Rel Tab) 25 mg PO [facility] Stop: 07/06/22 18:59 Last Admin: 06/07/22 08:04 Dose: 25 mg Miscellaneous (Remove Lidoderm Patch) 1 each N/A DAILY@2100 [facility] Stop: 07/06/22 20:59 Last Admin: 06/06/22 22:42 Dose: 1 each Multivitamins/Minerals (Cerovite Adv Formula Tab) 1 tab PO [facility] Stop: 07/07/22 08:59 Last Admin: 06/07/22 08:04 Dose: 1 tab Oxycodone HCl (Oxycodone Hcl Ir 5 Mg Tab (Immediate Release)) 5 mg PO Q6 PRN PRN Reason: Pain Stop: 06/21/22 08:23 Pantoprazole Sodium (Pantoprazole 40 Mg Tab) 40 mg PO [facility] Stop: 07/06/22 16:59 Last Admin: 06/07/22 08:04 Dose: 40 mg Rosuvastatin Calcium (Rosuvastatin Calcium 10 Mg Tab) 10 mg PO [facility] Stop: 07/07/22 08:59 Last Admin: 06/07/22 08:05 Dose: 10 mg
[2022-06-07] MEDS: oxyCODONE HCL IR 5 MG TAB (IMMEDIATE RELEASE) PO PRN ×2 (12:13→18:12)
[2022-06-07] MEDS: POLYETHYLENE (MIRALAX) 17 GM PACK PO PRN ×2 (13:01→22:23)
[2022-06-07] MEDS: SENNA 8.6 MG TAB PO SCH (13:39)
[2022-06-07] MEDS ORDERED: methylPREDNISolone 4 MG TAB PO SCH (21:00)
[2022-06-07 23:58] LABS: Appearance Urine Clear (Clear); Bilirubin Urine Negative (Negative); Blood Urine Negative (Negative); Color Urine Yellow; Glucose Urine UA Negative (Negative); Ketones Urine Negative (Negative); Leukocyte Esterase Urine Negative (Negative); Nitrite Urine Negative (Negative); Protein Urine Negative (Negative); Urobilinogen Urine Negative (Negative); pH Urine 5.5 (4.5-7.5)
[2022-06-08] MEDS: oxyCODONE HCL IR 5 MG TAB (IMMEDIATE RELEASE) PO PRN ×2 (06:31→14:20)
[2022-06-08] MEDS: methylPREDNISolone 4 MG TAB PO SCH ×2 (06:31→12:38)
[2022-06-08 06:58] LABS: BUN Creatinine Ratio 22.6 (10-20); Calcium 8.8 mg/dl (8.5-10.1); Creatinine Clr Calc Pharmacy 199.2 ml/min; Est GFR (African American) 117.5 ml/min; Est GFR (Non-African American) 101.4 ml/min; Potassium 4.4 mmol/L (3.5-5.1)
[2022-06-08] MEDS: ROSUVASTATIN CALCIUM 10 MG TAB PO SCH (08:22)
[2022-06-08] MEDS: PANTOprazole 40 MG TAB PO SCH (08:22)
[2022-06-08] MEDS: POLYETHYLENE (MIRALAX) 17 GM PACK PO PRN (08:22)
[2022-06-08] MEDS: BACLOFEN 10 MG TAB PO SCH (08:22)
[2022-06-08] MEDS: CEROVITE ADV FORMULA TAB PO SCH (08:22)
[2022-06-08] MEDS: ASPIRIN 81 MG ECTAB PO SCH (08:22)
[2022-06-08] MEDS: SENNA 8.6 MG TAB PO SCH (08:22)
[2022-06-08] MEDS: ACETAMINOPHEN 500 MG TAB PO SCH (08:22)
[2022-06-08] MEDS: LIDOCAINE 5% 1 PATCH TD SCH (08:23)
[2022-06-08] MEDS: ENOXAPARIN INJ 40 MG/0.4 ML SYR SQ SCH (08:23)
[2022-06-08] MEDS: METOPROLOL SUCC 25MG EXT REL TAB PO SCH (08:25)
[2022-06-08] MEDS ORDERED: POLYETHYLENE (MIRALAX) 17 GM PACK PO ONE (15:41)
--- NOTE | 2022-06-08 15:42 | Hospitalist Progress Note ---
Date of Service June 08, 2022 Assessment & Plan (1) Intractable low back pain: Plan: Sacroiliitis 51 y/o male presents with one week of acute lower back pain that has gradually worsened and is now limiting his ability to function safely at home. Still with difficulty ambulating in the ED due to pain so referred for admission for pain control - Consulted pain management to determine if pt may be a candidate for injections -medications adjusted - cont. scheduled acetaminophen, Baclofen and lidocaine patch - started Medrol dosepack, will cont. - P.o. Oxy as needed, IV dilaudid prn (pt did not need any IV today) - Fall precautions - Avoid NSAIDs if possible due to hx gastric bypass PT/OT obtained - ok to DC home w/ PCP follow up (2) Morbid obesity: (3) CAD (coronary artery disease): (4) Essential hypertension: (5) History of gastric bypass: Plan Continue other home medications as appropriate Code Status: Full code DVT Prophylaxis: Lovenox Admission and Anticipated Discharge Date Admission Date: June 06, 2022 Subjective Pt seen in follow up of back pain Seen by pain management yesterday PT/OT obtained - ok to DC home Currently laying in bed, in no acute distress Feels improved, able to ambulate to the bathroom, however still in pain Otherwise denies any fevers chills chest pain shortness of breath, abdominal pain, nausea or vomiting Review of Systems Review of Systems: All systems reviewed & are unremarkable except as noted in Subjective Physical Exam Physical Exam: Constitutional:L + morbidly obese; no acute distress Eyes: + anicteric scler ae Neck: trachea midline Respiratory: no respiratory dis tress and no labor ed breathing Ausc ultation: lungs cl ear to auscultatio n bilaterally; no rales, no rhonchi and no wheezes Cardiovascular:L Rate/Rhythm: regul ar rate and regula r rhythm Extremi ties: no edema Gastrointestinal ( Abdomen): Inspection/Auscult ation: normal jennifer l sounds; abdomen not distended Per cussion/Palpation: abdomen soft Musculoskeletal: Head/Neck/Chest: n ormocephalic, head atraumatic and ne ck supple no spin ous process tender ness LE strength 5 /5 and equal - no increased pain wit h dorsiflexion, pl antarflexion or hi p flexion Skin: no jaundice Neurologic: moves all extremit ies; no focal yoko r deficits Psychiatric: A+Ox3, euthymic af fect Results & Data Results & Data ([facility]) Vital Signs (Past 12 Hours) Vital Signs Temp Pulse Resp BP Pulse Ox O2 Del Method 06/08/22 14:43 36.6 C 65 18 135/77 99 Room Air 06/08/22 07:57 36.5 C 56 L 20 157/81 H 96 Room Air Laboratory Results 06/08/22 06/07/22 Range/Units 05:43 23:40 Sodium 138 (136-145) mmol/L Potassium 4.4 (3.5-5.1) mmol/L Chloride 104 (98-107) mmol/L Carbon Dioxide 30 (21-32) mmol/L Anion Gap 4 (3-11) BUN 19 (6-23) mg/dl Creatinine 0.84 (0.6-1.4) mg/dl Est Cr Clr Drug Dosing 199.2 ml/min Est GFR ( Amer) 117.5 ml/min Est GFR (Non-Af Amer) 101.4 ml/min BUN/Creatinine Ratio 22.6 H (10-20) Glucose 132 H (70-99(Fasting)) mg/dl Calcium 8.8 (8.5-10.1) mg/dl Magnesium 2.0 (1.7-2.4) mg/dl Urine Color Yellow Urine Appearance Clear (Clear) Urine pH 5.5 (4.5-7.5) Ur Specific Cliff 1.010 (1.000-1.030) Urine Protein Negative (Negative) Urine Glucose (UA) Negative (Negative) Urine Ketones Negative (Negative) Urine Blood Negative (Negative) Urine Nitrite Negative (Negative) Urine Bilirubin Negative (Negative) Urine Urobilinogen Negative (Negative) Ur Leukocyte Esterase Negative (Negative)
--- NOTE | 2022-06-08 16:04 | Discharge Summary ---
Date of Service June 08, 2022 Admission HPI Per Admitting Provider This is a 51 y/o male with a PMH of [place], morbid obesity, prior gastric bypass, sleep apnea, and urethral stricture who presented to the ED with worsening lower back pain x 1 week. Pt reports a history of right sciatica but this had seemed to improve after recent injections in knees for arthritis. One week ago he woke up with mid-lumbar pain that seemed to radiate to both sides. This started to improve initially after a few days but other the weekend it has moved to his left lumbar area and is worsening. He describes the pain as sharp and "deep" but it does not radiate to LE. Associated bilateral SI joint pain. He has been taking Aleve 2 tab BID with occasional Tylenol but this only takes the edge off. Pain has not gone away completely. This morning, he bent over to tie his shoe and had acute worsening of the pain. He attempted to go to work (at [employer]) but was unable to stand up straight and could not complete his work so he came to the ED for evaluation. In the ED, he received multiple doses of pain medication including morphine, dilaudid, and toradol without significant relief of pain. ED provider attempted to ambulate pt in the room but pt was unable to tolerate due to pain and was thought to be a significant fall risk if sent home. Pt reports living with a roommate. He has three steps to get into the house but otherwise living space is on one floor. He denies prior spinal surgery. Current pain is different than prior back pain associated with right sciatica. Admission Exam Per Admitting Provider Constitutional: + morbidly obese; no acute distress Eyes: + anicteric sclerae Neck: trachea midline B Respiratory: no respiratory distress and no labored breathing Auscultation: lungs clear to auscultation bilaterally; no rales, no rhonchi and no wheezes Cardiovascular: Rate/Rhythm: regular rate and regular rhythm Vessels: posterior tibial pulses present and radial pulses present Extremities: no edema Gastrointestinal (Abdomen): Inspection/Auscultation: normal bowel sounds; abdomen not distended Percussion/Palpation: abdomen soft Musculoskeletal: Head/Neck/Chest: normocephalic, head atraumatic and neck supple no spinous process tenderness LE strength 5/5 and equal - no increased pain with dorsiflexion, plantarflexion or hip flexion Skin: no jaundice Neurologic: moves all extremities; no focal motor deficits Psychiatric: A+Ox3, euthymic affect Principal Diagnosis Back pain Sacroiliitis Discharge Exam Constitutional: + morbidly obese; no acute distress Eyes: + anicteric sclerae Neck: trachea midline Respiratory: no respiratory distress and no labored breathing Auscultation: lungs clear to auscultation bilaterally; no rales, no rhonchi and no wheezes Cardiovascular: Rate/Rhythm: regular rate and regular rhythm Extremities: no edema Gastrointestinal (Abdomen): Inspection/Auscultation: normal bowel sounds; abdomen not distended Percussion/Palpation: abdomen soft Musculoskeletal: Head/Neck/Chest: normocephalic, head atraumatic and neck supple no spinous process tenderness LE strength 5/5 and equal - no increased pain with dorsiflexion, plantarflexion or hip flexion Skin: no jaundice Neurologic: moves all extremities; no focal motor deficits Psychiatric: A+Ox3, euthymic affect Discharge Data Allergies Allergy/AdvReac Type Severity Reaction Status Date / Time No Known Allergies AdvReac Unknown Verified 06/06/22 16:15 Consultations 06/06/22 16:00 ED Decision to Admit Stat 06/06/22 18:52 Consult Pain Management Routine Ordered Studies 06/06/22 11:45 CT lumbar spine wo con Stat FINDINGS: The skeletal structures are well-mineralized. There is no evidence of fracture or malalignment involving the lumbar spine. Vertebral body height and alignment are maintained. There is straightening of lumbar lordosis. Anterior and lateral marginal osteophytes are seen throughout. The transverse and spinous processes appear intact. There is no evidence of spondylolysis. No lytic or blastic lesion is seen. Mild facet arthropathy is noted in the lower lumbar region. There is mild to moderate multilevel degenerative disc space narrowing, greatest at L3-L4 and L4-L5. The central canal is not well evaluated due to streak artifact. The visualized sacrum and bony pelvis appear intact. The paraspinous soft tissues are normal in appearance. Cholecystectomy clips are noted. There is no retroperitoneal lymphadenopathy. IMPRESSION: No acute bony abnormality is seen involving the lumbar spine Hospital Course (1) Intractable low back pain: Sacroiliitis 51 y/o male presents with one week of acute lower back pain that has gradually worsened and is now limiting his ability to function safely at home. Still with difficulty ambulating in the ED due to pain so referred for admission for pain control - Consulted pain management to determine if pt may be a candidate for injections -medications adjusted - cont. scheduled acetaminophen, Baclofen and lidocaine patch - started Medrol dosepack, will cont. - P.o. Oxy as needed - Fall precautions - Avoid NSAIDs if possible due to hx gastric bypass PT/OT obtained - ok to DC home w/ PCP follow up (2) Morbid obesity: (3) CAD (coronary artery disease): (4) Essential hypertension: (5) History of gastric bypass: Plan Continue other home medications as appropriate Total Time Total Time Spent Total Time Spent (In Minutes): 40 Discharge Plan Discharge Items Patient Disposition: Home - Self-Care Reason For Visit: INTRACTABLE BACK PAIN Discharge Diagnosis: Back pain Sacroiliitis Condition on Discharge: Good Activity: Per Instructions section Non-emergency contact: Primary Care Provider Call non-emergency contact if: you have any medication questions and your symptoms worsen Follow-up/Referrals: Yuri Garvin DO [Primary Care Provider] - (Date & Time 06/14/2022 3:20 PM Provider Yuri Garvin DO Department Family [facility] ) Diet: Heart Healthy Addtl Attending Provider Instructions: Follow-up with primary care doctor, the appointment was scheduled for you for June 14. You should also follow-up with Dr. Franky Serra pain management, as previously planned. Continue taking Tylenol 1000 mg 3 times a day, max daily dose 3000 mg. Continue using lidocaine patch, you can obtain this [id number] under the name of Salonpas. Continue taking baclofen as prescribed. Continue taking oxycodone, as needed as prescribed. Finish Medrol pack as prescribed. Pending Studies at Discharge: No Stand-Alone Forms: [facility] [employer], Smoking Cessation Medications and DC Order Prescriptions: New baclofen 10 mg Tablet 10 mg PO BID 5 Days Qty: 10 0RF pantoprazole 40 mg Tablet,Delayed Release (Dr/Ec) 40 mg PO QAM 5 Days Qty: 5 0RF oxycodone 5 mg Tablet 5 mg PO Q6H PRN (Reason: pain) Qty: 10 0RF methylprednisolone 4 mg tablet 4 mg PO UD Qty: 8 0RF Rx Instructions: take 2 tabs on 06/08. On 06/09, take 1tab TID. On 06/10 take 1 tab BID. On 06/11 take one last tab. Continued naproxen sodium [Aleve] 220 mg Tablet 440 mg PO DIRECTED PRN (Reason: Pain) metoprolol succinate 25 mg tablet extended release 24 hr 25 mg PO QAM Men's One Daily Tablet 1 tab PO QAM rosuvastatin 10 mg tablet 10 mg PO QAM turmeric 400 mg Capsule 400 mg PO QAM aspirin 81 mg Tablet,Delayed Release (Dr/Ec) 81 mg PO DAILY Discharge Orders: Discharge Order (Routine); Ordered 06/08/22 Ordered By: Angel Hensley Admission Data Admit Date/Time: 06/06/22 16:18 Attending Provider: Angel Hensley Admit Provider: Angel Hensley Primary Care Provider: Yuri Garvin Other Providers: Kimmy Beltran Andrea F.
[2022-06-09] MEDS ORDERED: methylPREDNISolone 4 MG TAB PO SCH (07:00)
[2022-06-10] MEDS ORDERED: methylPREDNISolone 4 MG TAB PO SCH (07:00)
[2022-06-11] MEDS ORDERED: methylPREDNISolone 4 MG TAB PO SCH (07:00)
== END 2022-06-08 17:33 | disposition home or self-care (01) ==
LOC: ED 10:28 → 3E 10:28